=== PATIENT | female | born 1950 | race Caucasian/White ===

== ENCOUNTER → 2021-05-22 | Outpatient (CLI) | payer MEDICARE, OTHER ==
--- NOTE | 2021-05-22 13:51 | KCIC ---
EXAM: Cervical spine MRI without contrast. HISTORY: Left upper extremity radiculopathy. TECHNIQUE: Multiplanar, multisequence magnetic resonance imaging of the cervical spine was performed without contrast. COMPARISON: None. FINDINGS: There is mild cervical kyphosis and multilevel degenerative listhesis. There is degenerativ e endplate remodeling with disc space narrowing osteophytosis primarily at C5-C6 and C6-C7. There is no convincing spinal cord lesion. The skull base is unremarkable. 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 At C2-C3, there is moderate left facet arthropathy. There is no stenosis. At C3-C4, there is endplate remodeling. There is moderate right facet arthropathy. There is right unc overtebral arthropathy. There is mild right foraminal stenosis. At C4-C5, there is mild lateral facet arthropathy. There is no stenosis. At C5-C6, there are bilateral posterior lateral disc osteophyte complexes superimposed on a disc bulg e and endplate osteophytosis. There is bilateral uncovertebral arthropathy. There is moderate to olivia re right and mild left foraminal stenosis. There is deformation of the spinal cord and mild central c anal stenosis measuring 8.0 mm in anterior posterior dimension. At C6-C7, there is a disc bulge and endplate osteophytosis. There is mild bilateral facet arthropathy . There is bilateral uncovertebral arthropathy. There is mild central canal stenosis measuring 8.0 mm in anterior posterior dimension. IMPRESSION: Multilevel degenerative change involving the cervical spine, described in detail above. T his results in mild right foraminal stenosis at C3-C4, moderate to severe right and mild left foramin al and mild central canal stenosis at C5-C6, and mild central canal stenosis at C6-C7. Electronically signed by: Caro Mcallister MD (05/22/2021 1:49 PM) [facility]
== END ==
LOC: KCIC MRI 10:11
PROVIDERS: ATTEND Physician Assistant
DX: M47.22 Other spondylosis with radiculopathy, cervical region (principal); M48.8X2 Other specified spondylopathies, cervical region; M48.02 Spinal stenosis, cervical region; M50.322 Other cervical disc degeneration at C5-C6 level; M43.12 Spondylolisthesis, cervical region; M25.78 Osteophyte, vertebrae; M40.292 Other kyphosis, cervical region; M79.2 Neuralgia and neuritis, unspecified
CPT/HCPCS: 72141